=== PATIENT | female | born 1995 | race Caucasian/White ===

== ENCOUNTER 2022-10-20 20:07 | Emergency (ER) | payer OTHER ==
[~2022-10-20] VITALS: Ht 165.1 cm; Wt 104.3 kg
[2022-10-20 20:26] VITALS: O2SAT 99
[2022-10-20 21:13] LABS: BASOPHILS # (AUTO) 0.1 K/UL (0.0-0.2); BASOPHILS % (AUTO) 0.5 % (0.0-2.0); EOSINOPHILS # (AUTO) 0.3 K/uL (0.0-0.7); EOSINOPHILS % (AUTO) 2.8 % (0.0-7.0); HEMATOCRIT 34.9 % (31.2-41.9); HEMOGLOBIN 11.7 g/dL (10.9-14.3); LYMPHOCYTES # (AUTO) 2.7 K/uL (0.8-4.8); LYMPHOCYTES % (AUTO) 25.9 % (20.5-51.5); MEAN CORPUSCULAR HEMOGLOBIN 27.6 uug (24.7-32.8); MEAN CORPUSCULAR HGB CONC 34 g/dL (32.3-35.6); MEAN CORPUSCULAR VOLUME 82.5 fL (75.5-95.3); MONOCYTES # (AUTO) 0.6 K/uL (0.1-1.30); MONOCYTES % (AUTO) 5.6 % (0.0-11.0); NEUTROPHILS # (AUTO) 6.9 K/uL (1.8-8.9); NEUTROPHILS % (AUTO) 65.2 % (38.5-71.5); PLATELET COUNT (AUTO) 611 K/uL (179-408); RED BLOOD CELL COUNT(AUTO) 4.23 MIL/uL (3.63-4.92); RED CELL DISTRIBUTION WIDTH 15.2 % (12.3-17.7); WHITE BLOOD COUNT (AUTO) 10.6 K/uL (3.8-11.8)
[2022-10-20 21:19] LABS: DIFFERENTIAL COMMENT 1
[2022-10-20 21:24] LABS: CREATININE 0.8 mg/dL (0.6-1.3); POTASSIUM 4.1 mmol/L (3.5-5.1)
[2022-10-20 21:30] LABS: ALBUMIN 3.6 g/dL (3.4-5.0); BILIRUBIN,TOTAL 0.3 mg/dL (0.2-1.0); C-REACTIVE PROTEIN 0.8 mg/dL (0.0-0.9); TOTAL PROTEIN, SERUM 8.3 g/dL (6.4-8.2)
[2022-10-20] MEDS ORDERED: CEphaleXIN 500 MG CAPSULE PO ONE (22:15)
[2022-10-20] MEDS ORDERED: SULFAMETH/TRIMETH 800/160 MG TABLET PO ONE (22:15)
[2022-10-20] MEDS ORDERED: CEPH500C2 PO (22:18)
[2022-10-20] MEDS ORDERED: SULF1TAB48 PO (22:18)
[2022-10-20] MEDS ORDERED: CEphaleXIN 500 MG CAPSULE ONE ×2 (22:24→22:25)
[2022-10-20] MEDS ORDERED: SULFAMETH/TRIMETH 800/160 MG TABLET ONE (22:25)
[2022-10-20] MEDS ORDERED: CLIN-118 PO (22:36)
[2022-10-20] MEDS ORDERED: CLINDAMYCIN HCL 150 MG CAPSULE ONE (22:41)
[2022-10-20] MEDS ORDERED: CLINDAMYCIN HCL 150 MG CAPSULE PO ONE (22:45)
== END 2022-10-20 22:47 | disposition home or self-care (01) ==
LOC: ER 20:07
DX: L03.115 Cellulitis of right lower limb (principal); L02.415 Cutaneous abscess of right lower limb; Z91.013 Allergy to seafood; Z79.2 Long term (current) use of antibiotics
CPT/HCPCS: 36415; 85025; 86140; A4663